=== PATIENT | male | born 1985 | race Caucasian/White ===

== ENCOUNTER 2017-12-11 18:50 | Emergency (ER) | payer OTHER ==
[~2017-12-11] VITALS: Ht 175.3 cm; Wt 120.0 kg
[2017-12-11 19:08] VITALS: BP 155/93; PULSE 120; RESP 18; TEMP 98.8; O2SAT 99
[2017-12-11 19:30] VITALS: BP 174/87; PULSE 110; RESP 18; O2SAT 96
[2017-12-11 20:18] LABS: BILIRUBIN, URINE NEG (NEG); BLOOD, URINE NEG (NEG); GLUCOSE,URINE NEG (NEG); KETONE, URINE NEG (NEG); NITRITE,URINE NEG (NEG); URINE COLOR LIGHT-YELLOW (YELLW/STRAW); URINE LEUKOCYTE ESTERASE NEG (NEG)
[2017-12-11 20:21] LABS: AUTOMATED NEUTROPHIL # 9.5 TH/MM3 (1.8-7.7); BASOPHIL # 0.1 TH/MM3 (0-0.2); BASOPHIL % 0.6 % (0.0-2.0); EOSINOPHIL # 0.2 TH/MM3 (0-0.4); EOSINOPHIL % 1.4 % (0.0-4.0); HEMATOCRIT 51.9 % (39.0-51.0); HEMOGLOBIN 17.7 GM/DL (13.0-17.0); LYMPH % 17.2 % (9.0-44.0); LYMPHOCYTE # 2.1 TH/MM3 (1.0-4.8); MEAN CELL VOLUME 87.9 FL (80.0-100.0); MEAN CORPUSCULAR HGB CONC 34.1 % (32.0-36.0); MONO % 3.7 % (0.0-8.0); MONOCYTE # 0.5 TH/MM3 (0-0.9); NEUT % 77.1 % (16.0-70.0); PLATELET COUNT 241 TH/MM3 (150-450); RED CELL DISTRIBUTION WIDTH 14.1 % (11.6-17.2); WHITE BLOOD COUNT 12.3 TH/MM3 (4.0-11.0)
[2017-12-11 20:45] LABS: ALT (GPT) 54 U/L (12-78)
[2017-12-11 20:47] LABS: ALKALINE PHOSPHATASE 87 U/L (45-117); TOTAL BILIRUBIN ADULT 0.4 MG/DL (0.2-1.0); TOTAL PROTEIN 8.2 GM/DL (6.4-8.2)
[2017-12-11 20:52] LABS: ALBUMIN 4.1 GM/DL (3.4-5.0); AST (GOT) 31 U/L (15-37); BICARBONATE 20.9 MEQ/L (21.0-32.0); BLOOD UREA NITROGEN 8 MG/DL (7-18); CHLORIDE 109 MEQ/L (98-107); CREATININE 0.97 MG/DL (0.60-1.30); GLOMERULAR FILTRATION RATE 89 ML/MIN (>89); GLUCOSE,RANDOM 122 MG/DL (74-106); SODIUM (NA) 141 MEQ/L (136-145)
[2017-12-11 20:53] LABS: ACETAMINOPHEN LESS THAN 2.0 MCG/ML (10.0-30.0)
[2017-12-11 21:58] VITALS: BP 156/73; PULSE 78; RESP 16; O2SAT 97
[2017-12-11 23:45] VITALS: BP 143/80; PULSE 70; RESP 16; O2SAT 98
--- NOTE | 2017-12-12 06:04 | PD ---
HPI Chief Complaint: Psychiatric Symptoms Time Seen by Provider: 19:30 Travel History International Travel<30 days: Yes Contact w/Intl Traveler<30days: Yes Name of Country Traveled to: [place] Traveled to known affect area: No History of Present Illness HPI Patient reports feeling depressed and he said he took alcohol and 12 aspirin yesterday and that he did it again today with thought of hurting himself. Comes to the ER he has no vomiting no GI pain no signs of hematemesis no signs of being septic or acidotic labs are sent fluid is given he will be evaluated for med clearance after his aspirin level salicylate level is analyzed [facility] Past Medical History Sleep Apnea: Yes Tetanus Vaccination: > 5 Years Influenza Vaccination: No Past Surgical History Tonsillectomy: Yes Other Surgery: Yes (DEVIATED SEPTUM REPAIR) Social History Alcohol Use: Yes (DAILY) Tobacco Use: Yes Substance Use: Yes (MARIJUANA) Allergies-Medications (Allergen,Severity, Reaction): Coded Allergies: No Known Allergies (Unverified , 12/11/17) Reported Meds & Prescriptions Reported Meds & Active Scripts Active No Active Prescriptions or Reported Medications Review of Systems Psychiatric: Positive: Depression, Suicidal Ideations, Other (suicidal ingestion attempt reported ) Physical Exam Narrative GENERAL: Nontoxic-appearing he is comfortable he has no signs of vomiting no abdominal pain SKIN: Warm and dry. HEAD: Atraumatic. Normocephalic. EYES: Pupils equal and round. No scleral icterus. No injection or drainage. ENT: No nasal bleeding or discharge. Mucous membranes pink and moist. NECK: Trachea midline. No JVD. CARDIOVASCULAR: Regular rate and rhythm. RESPIRATORY: No accessory muscle use. Clear to auscultation. Breath sounds equal bilaterally. GASTROINTESTINAL: Abdomen soft nontender no epigastric pain no signs of injury from aspirin ingestion to gastric. No vomiting no hematemesis denies diarrhea MUSCULOSKELETAL: Extremities without clubbing, cyanosis, or edema. No obvious deformities. NEUROLOGICAL: Awake and alert. No obvious cranial nerve deficits. Motor grossly within normal limits. Five out of 5 muscle strength in the arms and legs. Normal speech. PSYCHIATRIC: Appropriate mood and affect; insight and judgment normal. Data Data Last Documented VS Vital Signs Date Time Temp Pulse Resp B/P (MAP) Pulse Ox O2 Delivery O2 Flow Rate FiO2 12/12/17 14:48 74 16 162/82 (108) 99 12/12/17 11:30 98.2 Room Air Orders Orders Complete Blood Count With Diff (12/11/17 19:55) Comprehensive Metabolic Panel (12/11/17 19:55) Urinalysis - C+S If Indicated (12/11/17 19:55) Psych Screen (12/11/17 19:55) Drug Screen, Random Urine (12/11/17 19:55) Alcohol (Ethanol) (12/11/17 19:55) Salicylates (Aspirin) (12/11/17 19:55) Tylenol (Acetaminophen) (12/11/17 19:55) Electrocardiogram (12/11/17 ) Salicylates (Aspirin) (12/11/17 22:19) Salicylates (Aspirin) (12/11/17 23:57) Diet Regular Basic (12/12/17 Breakfast) Diet Regular Basic (12/12/17 Lunch) Ed Discharge Order (12/12/17 14:50) Labs Laboratory Tests Test 12/11/17 19:57 12/11/17 19:58 12/11/17 22:29 12/12/17 00:45 White Blood Count 12.3 TH/MM3 Red Blood Count 5.90 MIL/MM3 Hemoglobin 17.7 GM/DL Hematocrit 51.9 % Mean Corpuscular Volume 87.9 FL Mean Corpuscular Hemoglobin 30.0 PG Mean Corpuscular Hemoglobin Concent 34.1 % Red Cell Distribution Width 14.1 % Platelet Count 241 TH/MM3 Mean Platelet Volume 8.0 FL Neutrophils (%) (Auto) 77.1 % Lymphocytes (%) (Auto) 17.2 % Monocytes (%) (Auto) 3.7 % Eosinophils (%) (Auto) 1.4 % Basophils (%) (Auto) 0.6 % Neutrophils # (Auto) 9.5 TH/MM3 Lymphocytes # (Auto) 2.1 TH/MM3 Monocytes # (Auto) 0.5 TH/MM3 Eosinophils # (Auto) 0.2 TH/MM3 Basophils # (Auto) 0.1 TH/MM3 CBC Comment DIFF FINAL Differential Comment Blood Urea Nitrogen 8 MG/DL Creatinine 0.97 MG/DL Random Glucose 122 MG/DL Total Protein 8.2 GM/DL Albumin 4.1 GM/DL Calcium Level 9.0 MG/DL Alkaline Phosphatase 87 U/L Aspartate Amino Transf (AST/SGOT) 31 U/L Alanine Aminotransferase (ALT/SGPT) 54 U/L Total Bilirubin 0.4 MG/DL Sodium Level 141 MEQ/L Potassium Level 3.9 MEQ/L Chloride Level 109 MEQ/L Carbon Dioxide Level 20.9 MEQ/L Anion Gap 11 MEQ/L Estimat Glomerular Filtration Rate 89 ML/MIN Salicylates Level 6.7 MG/DL 4.8 MG/DL 4.1 MG/DL Acetaminophen Level LESS THAN 2.0 MCG/ML Ethyl Alcohol Level 127 MG/DL Urine Color LIGHT-YELLOW Urine Turbidity CLEAR Urine pH 6.0 Urine Specific [place] 1.006 Urine Protein NEG mg/dL Urine Glucose (UA) NEG mg/dL Urine Ketones NEG mg/dL Urine Occult Blood NEG Urine Nitrite NEG Urine Bilirubin NEG Urine Urobilinogen LESS THAN 2.0 MG/DL Urine Leukocyte Esterase NEG Urine RBC 1 /hpf Urine WBC LESS THAN 1 /hpf Microscopic Urinalysis Comment CULT NOT INDICATED Urine Opiates Screen NEG Urine Barbiturates Screen NEG Urine Amphetamines Screen NEG Urine Benzodiazepines Screen NEG Urine Cocaine Screen NEG Urine Cannabinoids Screen NEG MDM Medical Decision Making Medical Screen Exam Complete: Yes Emergency Medical Condition: Yes Differential Diagnosis Suicidal gesture versus true suicidal intent and ingestion versus malingering versus other depression anxiety Narrative Course Salicylate level is 6.7 it is repeated is 4.8 and then next is 4.1 he is medically cleared for psych eval and possible admit inpatient psych. Patient has no GI complaint he is no signs of vomiting no signs of hematemesis no signs of aspirin injury to his gastric system. nor renal system safe for medical clearance to psyche Diagnosis Primary Impression: Suicidal ideation Additional Impression: Suicide attempt by drug ingestion Qualified Codes: T50.902A - Poisoning by unspecified drugs, medicaments and biological substances, intentional self-harm, initial encounter Scripts No Active Prescriptions or Reported Meds Stef Ho MD Dec 12, 2017 06:04
[2017-12-12 06:27] VITALS: BP 136/71; PULSE 72; RESP 17; O2SAT 97
[2017-12-12 11:30] VITALS: BP 174/101; PULSE 79; RESP 16; TEMP 98.2; O2SAT 99
[2017-12-12 14:48] VITALS: BP 162/82
--- NOTE | 2017-12-12 14:53 | PD ---
Physical Exam Date Seen by Provider: Dec 12, 2017 Time Seen by Provider: 14:51 Narrative For full history and physical examination please see previous providers note. Data Data Last Documented VS Vital Signs Date Time Temp Pulse Resp B/P (MAP) Pulse Ox O2 Delivery O2 Flow Rate FiO2 12/12/17 14:48 74 16 162/82 (108) 99 12/12/17 11:30 98.2 Room Air Orders Orders Complete Blood Count With Diff (12/11/17 19:55) Comprehensive Metabolic Panel (12/11/17 19:55) Urinalysis - C+S If Indicated (12/11/17 19:55) Psych Screen (12/11/17 19:55) Drug Screen, Random Urine (12/11/17 19:55) Alcohol (Ethanol) (12/11/17 19:55) Salicylates (Aspirin) (12/11/17 19:55) Tylenol (Acetaminophen) (12/11/17 19:55) Electrocardiogram (12/11/17 ) Salicylates (Aspirin) (12/11/17 22:19) Salicylates (Aspirin) (12/11/17 23:57) Diet Regular Basic (12/12/17 Breakfast) Diet Regular Basic (12/12/17 Lunch) Ed Discharge Order (12/12/17 14:50) Labs Laboratory Tests Test 12/11/17 19:57 12/11/17 19:58 12/11/17 22:29 12/12/17 00:45 White Blood Count 12.3 TH/MM3 Red Blood Count 5.90 MIL/MM3 Hemoglobin 17.7 GM/DL Hematocrit 51.9 % Mean Corpuscular Volume 87.9 FL Mean Corpuscular Hemoglobin 30.0 PG Mean Corpuscular Hemoglobin Concent 34.1 % Red Cell Distribution Width 14.1 % Platelet Count 241 TH/MM3 Mean Platelet Volume 8.0 FL Neutrophils (%) (Auto) 77.1 % Lymphocytes (%) (Auto) 17.2 % Monocytes (%) (Auto) 3.7 % Eosinophils (%) (Auto) 1.4 % Basophils (%) (Auto) 0.6 % Neutrophils # (Auto) 9.5 TH/MM3 Lymphocytes # (Auto) 2.1 TH/MM3 Monocytes # (Auto) 0.5 TH/MM3 Eosinophils # (Auto) 0.2 TH/MM3 Basophils # (Auto) 0.1 TH/MM3 CBC Comment DIFF FINAL Differential Comment Blood Urea Nitrogen 8 MG/DL Creatinine 0.97 MG/DL Random Glucose 122 MG/DL Total Protein 8.2 GM/DL Albumin 4.1 GM/DL Calcium Level 9.0 MG/DL Alkaline Phosphatase 87 U/L Aspartate Amino Transf (AST/SGOT) 31 U/L Alanine Aminotransferase (ALT/SGPT) 54 U/L Total Bilirubin 0.4 MG/DL Sodium Level 141 MEQ/L Potassium Level 3.9 MEQ/L Chloride Level 109 MEQ/L Carbon Dioxide Level 20.9 MEQ/L Anion Gap 11 MEQ/L Estimat Glomerular Filtration Rate 89 ML/MIN Salicylates Level 6.7 MG/DL 4.8 MG/DL 4.1 MG/DL Acetaminophen Level LESS THAN 2.0 MCG/ML Ethyl Alcohol Level 127 MG/DL Urine Color LIGHT-YELLOW Urine Turbidity CLEAR Urine pH 6.0 Urine Specific [place] 1.006 Urine Protein NEG mg/dL Urine Glucose (UA) NEG mg/dL Urine Ketones NEG mg/dL Urine Occult Blood NEG Urine Nitrite NEG Urine Bilirubin NEG Urine Urobilinogen LESS THAN 2.0 MG/DL Urine Leukocyte Esterase NEG Urine RBC 1 /hpf Urine WBC LESS THAN 1 /hpf Microscopic Urinalysis Comment CULT NOT INDICATED Urine Opiates Screen NEG Urine Barbiturates Screen NEG Urine Amphetamines Screen NEG Urine Benzodiazepines Screen NEG Urine Cocaine Screen NEG Urine Cannabinoids Screen NEG MDM Medical Record Reviewed: Yes Supervised Visit with ADONIS: No Narrative Course For full H&P please see previous providers note. Patient was seen and evaluated emergency department, he was medically cleared. He was then seen by psychiatry. Please see psychiatry notes. Patient will be discharged home. He is to follow-up with Jose E Awad. Patient denies any suicidal ideations at this time. Diagnosis Primary Impression: Alcohol intoxication Qualified Codes: F10.920 - Alcohol use, unspecified with intoxication, uncomplicated Referrals: [facility] Patient Instructions: General Instructions Additional Instruction: Follow-up with Jose E Awad Return to emergency department immediately for any new or worsening symptoms Avoid alcohol intake Med/Other Pt SpecificInfo: No Change to Meds Scripts No Active Prescriptions or Reported Meds Disposition: 01 DISCHARGE HOME Condition: Stable Gia Ghosh [facility] Dec 12, 2017 14:53
--- NOTE | 2017-12-12 14:54 | PD ---
History of Present Illness Chief Complaint: Psychiatric Symptoms Time Seen by Provider: 14:10 Travel History International Travel<30 Days: Yes Contact w/Intl Traveler<30days: Yes Name of Country Traveled to: [place] Known affected area: No Legal Status Legal Status: Pal[place]ios Act History of Present Illness: History of Present Illness HPI Patient is a 32 year old single male with no previous psychiatric history who in context of alcohol intoxication and a breakup with his girlfriend ingested some aspirins with the intention of hurting himself. He also self-inflicted a very superficial laceration on his left wrist. He presented with a blood alcohol level of 127 and admitted to having been drinking whiskey the morning of his suicidal gesture. Initial salicylate level was 6.4. He reports that he went on a cruise last week with his girlfriend, her children and her male friend and during that cruise she chose to stay with her male friend instead of staying with him. He states that after they returned she asked him to move out and told him that she no longer loved him. Patient admits now that this was an impulsive act. He denies that he had been planning to hurt himself. This morning the patient states that he has had time to think about his situation and that he is ready to go back to work he also states "I now have no desire to be with her. I have to go on with my life". Patient is seen with Benjy case finishing machine adjuster present. Nursing notes are reviewed. The patient is alert, oriented, dressed in hospital scrubs with fair hygiene and grooming. His speech is clear and logical. There is no evidence of any hallucinations, no delusions, no mary. Mood is nearly euthymic. He denies any suicidal or homicidal ideation, intent or plan. 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 Remainder of psychiatric review of system is negative. PFSH Past Medical History Sleep Apnea: Yes Tetanus Vaccination: > 5 Years Influenza Vaccination: No Past Surgical History Tonsillectomy: Yes Other Surgery: Yes (DEVIATED SEPTUM REPAIR) Psychiatric History Psychiatric History Hx Psychiatric Treatment: No previous psychiatric history. No previous history of suicide attempts. No history of self-injurious behavior. History of Inpatient Treatment: No Guns or firearms in home: No Social History Born and raised in [place]. Moved to [place] in July. Moved in with his girlfriend at that time. He has worked as an over the road truck driver helper. Hx Alcohol Use: Yes (DAILY) Hx Tobacco Use: Yes Hx Substance Use: Yes (MARIJUANA) Substance Use Type: Alcohol Other Substances Used: Negative toxicology Hx of Substance Use Treatment: No Family Psychiatric History Negative Allergies-Medications (Allergen,Severity, Reaction): Coded Allergies: No Known Allergies (Unverified , 12/11/17) Reported Meds & Prescriptions Reported Meds & Active Scripts Active No Active Prescriptions or Reported Medications Review of Systems Psychiatric: DENIES: Anxiety, Confusion, Mood changes, Depression, Hallucinations, Agitation, Suicidal Ideation, Homicidal Ideation, Delusions Except as stated in HPI: all other systems reviewed are Neg Mental Status Examination Appearance: Appropriate Consciousness: Alert Orientation: x4 Motor Activity: Normal gait Speech: Unremarkable Language: Adequate Fund of Knowledge: Adequate Attention and Concentration: Adequate Memory: Unremarkable Mood: Appropriate Affect: Appropriate Thought Process & Associations: Intact, Logical, Goal directed Thought Content: Appropriate Hallucination Type: None Delusion Type: None Suicidal Ideation: No Suicidal Plan: No Suicidal Intention: No Homicidal Ideation: No Homicidal Plan: No Insight: Fair Judgment: Impulsive MDM Medical Decision Making Medical Record Reviewed: Yes Assessment/Plan Patient is a 32 year old single male with no previous psychiatric history who in context of alcohol intoxication and a breakup with his girlfriend ingested some aspirins along with alcohol with the intention of hurting himself. He also self-inflicted a very superficial laceration on his left wrist. He presented with a blood alcohol level of 127 and admitted to having been drinking whiskey the morning of his suicidal gesture. Patient was monitor and secure environment and presented no behavioral concerns, no suicidality. There is no evidence of any unstable mental illness as described under the Palacios act. Patient admits now that this was an impulsive act. He denies that he had been planning to hurt himself. He further denies any continued suicidal or homicidal ideation, intent or plan. 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 He contracts for safety. He is cognitively intact. manager terminal will provide him with area resources including the number to [facility] hotline. At this time the patient does not meet criteria to remain under the Palacios act. The Palacios act will be lifted psychiatric clear for discharge from the ED. Orders Orders Complete Blood Count With Diff (12/11/17 19:55) Comprehensive Metabolic Panel (12/11/17 19:55) Urinalysis - C+S If Indicated (12/11/17 19:55) Psych Screen (12/11/17 19:55) Drug Screen, Random Urine (12/11/17 19:55) Alcohol (Ethanol) (12/11/17 19:55) Salicylates (Aspirin) (12/11/17 19:55) Tylenol (Acetaminophen) (12/11/17 19:55) Electrocardiogram (12/11/17 ) Salicylates (Aspirin) (12/11/17 22:19) Salicylates (Aspirin) (12/11/17 23:57) Diet Regular Basic (12/12/17 Breakfast) Diet Regular Basic (12/12/17 Lunch) Ed Discharge Order (12/12/17 14:50) Results Vital Signs Date Time Temp Pulse Resp B/P (MAP) Pulse Ox O2 Delivery O2 Flow Rate FiO2 12/12/17 14:48 74 16 162/82 (108) 99 12/12/17 11:30 98.2 79 16 174/101 (125) 99 Room Air 12/12/17 06:27 72 17 136/71 (92) 97 Room Air 12/11/17 23:45 70 16 143/80 (101) 98 Room Air 12/11/17 21:58 78 16 156/73 (100) 97 Room Air 12/11/17 19:30 110 18 174/87 (116) 96 Room Air 12/11/17 19:08 98.8 120 18 155/93 (113) 99 Laboratory Tests Test 12/11/17 19:57 12/11/17 19:58 12/11/17 22:29 12/12/17 00:45 White Blood Count 12.3 Red Blood Count 5.90 Hemoglobin 17.7 Hematocrit 51.9 Mean Corpuscular Volume 87.9 Mean Corpuscular Hemoglobin 30.0 Mean Corpuscular Hemoglobin Concent 34.1 Red Cell Distribution Width 14.1 Platelet Count 241 Mean Platelet Volume 8.0 Neutrophils (%) (Auto) 77.1 Lymphocytes (%) (Auto) 17.2 Monocytes (%) (Auto) 3.7 Eosinophils (%) (Auto) 1.4 Basophils (%) (Auto) 0.6 Neutrophils # (Auto) 9.5 Lymphocytes # (Auto) 2.1 Monocytes # (Auto) 0.5 Eosinophils # (Auto) 0.2 Basophils # (Auto) 0.1 CBC Comment DIFF FINAL Differential Comment Blood Urea Nitrogen 8 Creatinine 0.97 Random Glucose 122 Total Protein 8.2 Albumin 4.1 Calcium Level 9.0 Alkaline Phosphatase 87 Aspartate Amino Transf (AST/SGOT) 31 Alanine Aminotransferase (ALT/SGPT) 54 Total Bilirubin 0.4 Sodium Level 141 Potassium Level 3.9 Chloride Level 109 Carbon Dioxide Level 20.9 Anion Gap 11 Estimat Glomerular Filtration Rate 89 Salicylates Level 6.7 4.8 4.1 Acetaminophen Level LESS THAN 2.0 Ethyl Alcohol Level 127 Urine Color LIGHT-YELLOW Urine Turbidity CLEAR Urine pH 6.0 Urine Specific [place] 1.006 Urine Protein NEG Urine Glucose (UA) NEG Urine Ketones NEG Urine Occult Blood NEG Urine Nitrite NEG Urine Bilirubin NEG Urine Urobilinogen LESS THAN 2.0 Urine Leukocyte Esterase NEG Urine RBC 1 Urine WBC LESS THAN 1 Microscopic Urinalysis Comment CULT NOT INDICATED Urine Opiates Screen NEG Urine Barbiturates Screen NEG Urine Amphetamines Screen NEG Urine Benzodiazepines Screen NEG Urine Cocaine Screen NEG Urine Cannabinoids Screen NEG Diagnosis Primary Impression: Alcohol-induced mood disorder Additional Impression: Alcohol intoxication Ruled Out: Suicidal ideation Psychiatrically Cleared: Yes Med/ Other Pt Specific Info: No Meds Exist/No RX given Prescriptions No Active Prescriptions or Reported Meds Disposition: DISCHARGE HOME Condition: Stable Problem Qualifiers Additional Impression: Alcohol intoxication Qualified Codes: F10.920 - Alcohol use, unspecified with intoxication, uncomplicated Carmen Sy [facility] Dec 12, 2017 14:54
--- NOTE | 2017-12-13 09:08 | EKG ---
Date Performed: 12/11/2017 Time Performed: 21:05:28 PTAGE: 32 years EKG: Sinus rhythm WITH SINUS ARRHYTHMIA NORMAL ECG NO PREVIOUS TRACING DOCTOR: Bandar Merlos Interpretating Date/Time 12/13/2017 09:06:27
== END 2017-12-12 15:12 | disposition home or self-care (01) ==
LOC: NEPC 18:50 → NEPJ 12-12 15:12
DX: R45.851 Suicidal ideations (principal); F12.90 Cannabis use, unspecified, uncomplicated; F10.129 Alcohol abuse with intoxication, unspecified; G47.30 Sleep apnea, unspecified
CPT/HCPCS: 80053; 80307; 81001; 85025; 93005; 99284